=== PATIENT | female | born 1950 | race Caucasian/White ===

== ENCOUNTER → 2022-06-22 | Outpatient (REF) | payer MEDICARE, BC | LOC: M LAB REF 17:05 | PROVIDERS: ATTEND Internal Medicine Endocrinology, Diabetes & Metabolism | DX: E04.2 Nontoxic multinodular goiter (principal) ==

== ENCOUNTER → 2023-01-27 | Outpatient (CLI) | payer MEDICARE, BC | LOC: M RAD 08:47 | PROVIDERS: ATTEND Surgery Surgical Oncology | DX: C49.9 Malignant neoplasm of connective and soft tissue, unspecified (principal) ==

== ENCOUNTER 2024-03-07 11:03 | Day surgery (SDC) | payer MEDICARE, BC ==
[~2024-03-07] VITALS: Ht 167.6 cm; Wt 84.3 kg
[~2024-03-07 11:03] MED LIST: ACTO35TA9 PO; ASPI81TA26 PO; CENT1TAB PO; ELIQ2.5T PO; FERR325T19 PO; LISI2.5T9 PO; METO1TAB7 PO
[2024-03-07] MEDS ORDERED: LR 1,000 ML IV SCH (11:10)
[2024-03-07] MEDS ORDERED: propofoL 200 MG/20 ML VIAL As Ordered ONE (12:24)
[2024-03-07] MEDS: LIDOCAINE 1% SDV 30ML VIAL As Ordered ONE (15:40)
[2024-03-07] MEDS: BOTOX THERAPEUTIC 100 UNIT VIAL As Ordered ONE (15:40)
[2024-03-07 16:10] VITALS: BP 128/66; TEMP 97.6; O2SAT 98
== END 2024-03-07 16:13 | disposition home or self-care (01) ==
LOC: M SDC 11:03
PROVIDERS: ATTEND Surgery
DX: K43.2 Incisional hernia without obstruction or gangrene (principal); Z85.89 Personal history of malignant neoplasm of other organs and systems; I10 Essential (primary) hypertension; E04.1 Nontoxic single thyroid nodule; Z79.899 Other long term (current) drug therapy; Z79.82 Long term (current) use of aspirin
CPT/HCPCS: 64647; J0585; J0665

== ENCOUNTER → 2025-02-15 | Outpatient (CLI) | payer MEDICARE, BC ==
[~2025-02-15] MED LIST changes: +CALC500T68 PO; +HYDR-3713 PO; +ISOVUE-370 76% 100ML VIAL ONE; +METH-1165 PO; +RISE1TAB8 PO
== END ==
LOC: M PLAIMG 09:53
PROVIDERS: ATTEND Surgery Surgical Oncology
DX: K44.9 Diaphragmatic hernia without obstruction or gangrene (principal); N28.0 Ischemia and infarction of kidney; K57.30 Diverticulosis of large intestine without perforation or abscess without bleeding; Z90.49 Acquired absence of other specified parts of digestive tract; Z85.831 Personal history of malignant neoplasm of soft tissue
CPT/HCPCS: 74177; Q9967

== ENCOUNTER → 2025-09-10 | Outpatient (CLI) | payer MEDICARE, BC ==
[~2025-09-10] MED LIST changes: -ISOVUE-370 76% 100ML VIAL ONE; +LIDOCAINE 1% MDV 20 ML VIAL SC SCH
[2025-09-10 10:25] VITALS: TEMP 97.9
[2025-09-10 11:15] VITALS: BP 164/82; O2SAT 97
== END ==
LOC: M IRPRO 10:12
PROVIDERS: ATTEND Nurse Practitioner Family
DX: E04.2 Nontoxic multinodular goiter (principal)